=== PATIENT | female | born 1980 | race Caucasian/White ===

== ENCOUNTER → 2018-07-11 | Outpatient (CLI) | payer BC ==
[~2018-07-11] MED LIST: AMOX500 PO; CEPH500 PO; CYCL10 PO; NAPR500 PO; PRED10 PO; RXCYCL10 PO; RXHYDACE PO; SULTRIDS PO
[2018-07-15 15:06] LABS: HPV 16 Negative (Negative); HPV 18 Negative (Negative); HPV OTHER HR TYPES Negative (Negative)
== END | disposition home or self-care (01) ==
LOC: LAB SHORT 19:15 → LAB 19:15
PROVIDERS: Physician Assistant
DX: Z12.4 Encounter for screening for malignant neoplasm of cervix (principal)
CPT/HCPCS: 87624; G0145

== ENCOUNTER 2020-03-03 10:46 | Day surgery (SDC) | payer BC ==
[~2020-03-03] VITALS: Ht 144.8 cm; Wt 49.6 kg
[~2020-03-03 10:46] MED LIST changes: +LEVONOR-ETH ES1 EAC6 PO; +OMEP20ER PO
--- NOTE | 2020-03-03 12:04 | NUR ---
03/03/20 1204 Gabriela Coffman FLUID DEFICIT 350ML. PHYSICIAN AWARE
--- NOTE | 2020-03-03 12:25 | NUR ---
03/03/20 1225 Jolynn Pino PATIENT TO PACU VIA GURNEY. VITALS STABLE PATIENT APPEARS SLEEPY BUT OPENS HER EYES WHEN SPOKEN TO, ANSWERS QUESTIONS APPROPRIATELY. SHE STATES NO PAIN OR NAUSEA AT THIS TIME. PATIENT IS ABLE TO BE MOVED TO SDU AT THIS TIME
== END 2020-03-03 13:01 | disposition home or self-care (01) ==
LOC: ORSCSDS 10:46
PROVIDERS: Obstetrics & Gynecology
PROC: 0UB98ZX Excision of Uterus, Via Natural or Artificial Opening Endoscopic, Diagnostic (ICD-10-PCS; principal; 2020-03-03 12:00)
PROC: 0UDB8ZX Extraction of Endometrium, Via Natural or Artificial Opening Endoscopic, Diagnostic (ICD-10-PCS; principal; 2020-03-03 12:00)
PROC: 0UQG7ZZ Repair Vagina, Via Natural or Artificial Opening (ICD-10-PCS; principal; 2020-03-03 12:00)
DX: N93.9 Abnormal uterine and vaginal bleeding, unspecified (principal); N84.0 Polyp of corpus uteri; S31.41XA Laceration without foreign body of vagina and vulva, initial encounter
CPT/HCPCS: 88305; J0171; J1100; J1885; J2250; J2405; J2704; J3010; J7120

== ENCOUNTER → 2022-01-03 | Outpatient (CLI) | payer BC | END | disposition home or self-care (01) | DX: R82.79 Other abnormal findings on microbiological examination of urine (principal) ==

== ENCOUNTER 2022-04-12 08:09 | Day surgery (SDC) | payer BC ==
[~2022-04-12] VITALS: Ht 149.9 cm; Wt 50.7 kg
--- NOTE | 2022-04-12 10:34 | NUR ---
Ambulatory in Day Surgery TO RESTROOM AND BACK TO [facility]. Surgical site prepped with 2% Chlorhexidine cloth wipe. History, Chart, Medications and Allergies reviewed before start of procedure. Lungs clear T/O to Auscultation. Patient confirms NPO status and agrees with scheduled surgery. Pre-Op teaching done. Pt verbalizes understanding. AT BEDSIDE WITH PT.
--- NOTE | 2022-04-12 13:30 | NUR ---
PATIENT ARRIVED TO UNIT VIA GURNEY, TRANSFERRED TO BED VIA SLIDER SHEET AND X3 STAFF, PATIENT TOLERATED VERY WELL. X4 LAP SITES TO ABDOMEN W/ DERMABOND, APPEAR C/D/I, REENA PAD IN PLACE W/ NO BLEEDING NOTED. VSS ON RA. LUNGS CLEAR. PAIN NOTED TOP BE 7/10 AT THIS TIME, PLAN TO MEDICATE PER EMAR. ORIENTED TO ROOM & CALL LIGHT, IN REACH.
--- NOTE | 2022-04-12 18:38 | NUR ---
DISCHARGE PATIENT AMBULATING WELL INDEPENDENLTY TO BATHROOM AND IN ROOM. EATING, DRINKING, & VOIDING WELL W/ PVR OF 38. PAIN REPORTED TO ME TOELRABLE PER PATIENT. X4 LAP SITES TO ABDOMEN APPEAR WNL. DISCUSSED DISCHARGE INSTRUCTIONS, REMOVED X2 IV'S, ESCORTED OUT VIA W/C.
== END 2022-04-12 18:40 | disposition home or self-care (01) ==
LOC: ORSCMMR 08:09 → ORD 10:15 → SURS 13:56 → ORSCMMR 18:40
PROVIDERS: Obstetrics & Gynecology
PROC: 8E0W4CZ Robotic Assisted Procedure of Trunk Region, Percutaneous Endoscopic Approach (ICD-10-PCS; principal; 2022-04-12 10:15)
PROC: 0UT9FZZ Resection of Uterus, Via Natural or Artificial Opening With Percutaneous Endoscopic Assistance (ICD-10-PCS; principal; 2022-04-12 10:15)
PROC: 0UT7FZZ Resection of Bilateral Fallopian Tubes, Via Natural or Artificial Opening With Percutaneous Endoscopic Assistance (ICD-10-PCS; principal; 2022-04-12 10:15)
DX: N92.0 Excessive and frequent menstruation with regular cycle (principal); D25.9 Leiomyoma of uterus, unspecified; N85.2 Hypertrophy of uterus; N94.6 Dysmenorrhea, unspecified; I10 Essential (primary) hypertension
CPT/HCPCS: 58571; S2900; 36415; 86850; 86900; 86901; 88307; A9270; J0690; J1100; J1170; J1885; J2250; J2405; J2704; J2795; J3010; J7120